=== PATIENT | male | born 2000 | race Two or more races ===

== ENCOUNTER 2024-09-20 09:45 | Emergency (ER) | payer MEDICAID ==
[~2024-09-20] VITALS: Ht 175.3 cm; Wt 74.3 kg
[2024-09-20] MEDS: LIDOcaine 1% 30ml preserv. free vial IJ STA (10:59)
[2024-09-20] MEDS: TETanus/Pertussis (Acell)/Diphther VAC/PF (Tdap-Adult) 0.5ml syringe IMVAC ONE (10:59)
[2024-09-20 11:00] VITALS: BP 110/76; PULSE 72; RESP 15; O2SAT 100
[2024-09-20] MEDS ORDERED: CEPH-585 PO (11:01)
[2024-09-20] MEDS: ceFAZolin 1gm IM kit IM ONE (11:08)
[2024-09-20 11:44] VITALS: TEMP 97.8
== END 2024-09-20 11:30 | disposition home or self-care (01) ==
LOC: ER 09:46
DX: S61.412A Laceration without foreign body of left hand, initial encounter (principal); X58.XXXA Exposure to other specified factors, initial encounter; Y93.89 Activity, other specified; Y92.89 Other specified places as the place of occurrence of the external cause; Y99.8 Other external cause status
CPT/HCPCS: 12002; 73130; 90471; 90715; 99283; J7030; A6258; A6449